=== PATIENT | male | born 1955 | race Caucasian/White ===

== ENCOUNTER 2020-09-11 10:33 | Emergency (ER) | payer SELFPAY ==
--- NOTE | 2020-09-11 10:39 | ED.EAR ---
HPI - Ear Problem General Chief complaint: Ear Stated complaint: ears ringing, stuffed Time Seen by Provider: 09/11/20 10:39 Source: patient and RN notes reviewed Mode of arrival: ambulatory Limitations: no limitations History of Present Illness HPI Narrative: 65-year-old male presents with concern for bilateral clogged ears. Reports since this morning he has had decreased hearing in his left ear, reports a history of bilateral excessive earwax. He denies ear pain, purulent drainage. MD Complaint: other (Ears clogged) Related Data Home Medications Medication Instructions Recorded Confirmed pentosan polysulfate sodium 100 mg TID 09/11/20 09/11/20 [Elmiron] tamsulosin [Flomax] 0.4 mg PO DAILY 09/11/20 09/11/20 Allergies Allergy/AdvReac Type Severity Reaction Status Date / Time Sulfa (Sulfonamide Allergy Intermediate Rash Verified 04/20/19 21:47 Antibiotics) erythromycin base Allergy Unknown Verified 10/06/16 08:58 iodine Allergy Unknown Verified 10/06/16 08:57 IODINE CONTRAST Allergy Severe RASH, Uncoded 03/27/16 10:27 SWELLING Review of Systems Review of Systems: Narrative: CONSTITUTIONAL: Denies malaise, chills, sweats, or fever. EYES: Denies visual changes, redness, or discharge. ENT: Denies rhinorrhea, congestion, sinus pain, otalgia and sore throat. Reports bilateral clogged ears CARDIOVASCULAR: Denies chest pain, palpitations, or edema. RESPIRATORY: Denies cough or dyspnea. SKIN: Denies rash or itching. NEUROLOGIC: Denies headache. All systems reviewed & are unremarkable except as noted in HPI and below PMFSH Social History Social History Smoking status: Former smoker Alcohol intake: never Gender identity (if verbalized by the patient): Male Comments At time of signature, agree with nursing past medical, surgical, social and family history. There is no relevant family history pertinent to the presenting complaint Exam Narrative: Exam Narrative: GENERAL: Well-appearing, well-nourished, and in no acute distress. HEAD: Normocephalic EYES: PERRLA, conjunctivae clear ENT: Nares clear. Mucous membranes moist. TM not visible due to excessive cerumen bilaterally; no tragal tenderness. NECK: Supple. CHEST: No respiratory distress, speaks in full sentences. HEART: Regular rate and rhythm. SKIN: Warm, dry, no rash. NEURO: Alert and oriented x3. PSYCH: Normal mood and affect Course Course Emergency Course: Patient is aware of diagnosis, understands and agrees to treatment plan. Anticipatory guidance given. Patient agrees to follow-up as directed and is aware of reasons to seek care at the emergency department. Portions of this record may have been created with voice recognition software Vital Signs Vital signs: Vital Signs Temperature 98.9 F 09/11/20 10:41 Pulse Rate 84 09/11/20 10:41 Respiratory Rate 18 09/11/20 10:41 Blood Pressure 164/99 H 09/11/20 10:41 Pulse Oximetry 100 09/11/20 10:41 Temperature 98.9 F 09/11/20 10:41 Pulse Rate 84 09/11/20 10:41 Respiratory Rate 18 09/11/20 10:41 Blood Pressure 164/99 H 09/11/20 10:41 Pulse Oximetry 100 09/11/20 10:41 Reviewed. Pt has been instructed to follow up with his primary care provider within the next week regarding his elevated blood pressure today. Procedures Ear Wax Removal Both Ears: Ear Wax Removal Date: 09/11/20 Ear Wax Removal Time: 10:40 Cerumenolytic Used: 5-10% Sodium Bicarb solution Results: Re-examined: cerumen removed completely TM Examination: TM(s) intact, normal appearance Ear Canal Exam: atraumatic Patient Tolerated Procedure: well Complications: no problems Technique: ear canal irrigated and ear canal curetted Medical Decision Making MDM Narrative Medical decision making narrative: Differential diagnosis considered: Pate virus, strep pharyngitis, allergic rhinitis, upper respiratory tract infection, sinusitis, rhinosinus
[2020-09-11 10:41] VITALS: BP 164/99; PULSE 84; RESP 18; TEMP 37.2; O2SAT 100
== END 2020-09-11 10:59 | disposition home or self-care (01) ==
PROVIDERS: Emergency Provider Nurse Practitioner; PCP Internal Medicine
DX: H61.23 Impacted cerumen, bilateral (principal); Z87.891 Personal history of nicotine dependence; N40.0 Benign prostatic hyperplasia without lower urinary tract symptoms
CPT/HCPCS: 69210; 99212; G0463